=== PATIENT | male | born 1975 | race Caucasian/White ===

== ENCOUNTER → 2019-08-25 | Outpatient (CLI) | payer OTHER ==
--- NOTE | 2019-08-25 12:40 | Diagnostic Imaging Report ---
INDICATION: Lifting injury, back pain. FINDINGS: Lumbar statures are normal and the alignment anatomic. No acute endplate irregularity. No fracture demonstrated. IMPRESSION: Unremarkable radiographic appearance of the anatomically aligned lumbar spine. Dictated by: Dictated on workstation # [id number]
--- NOTE | 2019-08-25 16:42 | Diagnostic Imaging Report ---
INDICATION: Back pain and injury. TIME OF EXAM: 10:11 a.m. FINDINGS: Multiple views of the thoracic spine were obtained. Curvature and alignment are normal. Vertebral body heights are well maintained. No fracture is seen. Pedicles and paraspinous line are intact. Mild lower thoracic spondylosis is noted. IMPRESSION: No acute bony abnormality is detected. Dictated by: Dictated on workstation # [id number]
== END ==
LOC: RAD FS 10:07
PROVIDERS: ATTEND Nurse Practitioner Family
DX: S39.92XA Unspecified injury of lower back, initial encounter (principal); S29.9XXA Unspecified injury of thorax, initial encounter; X50.0XXA Overexertion from strenuous movement or load, initial encounter
CPT/HCPCS: 72072; 72100

== ENCOUNTER → 2019-11-02 | Outpatient (CLI) | payer BC ==
--- NOTE | 2019-11-02 13:46 | Diagnostic Imaging Report ---
INDICATION: Left-sided rib pain. AP and oblique views left ribs are obtained There is no underlying pneumothorax or pleural fluid. The left ribs appear unremarkable with no evidence of fracture or acute bony amount. IMPRESSION: Negative left ribs. Dictated by: Dictated on workstation # [id number]
== END ==
LOC: RAD FS 13:23
PROVIDERS: ATTEND Nurse Practitioner
DX: R07.81 Pleurodynia (principal)
CPT/HCPCS: 71100

== ENCOUNTER 2020-03-20 13:53 | Emergency (ER) | payer BC ==
[~2020-03-20] VITALS: Ht 180 cm; Wt 94.7 kg
--- OUTSIDE RECORDS SUMMARY | 2020-03-20 13:57 | XMS REPORT | Continuity of Care Document ---
Author Organization Unknown Address Unknown Phone Unavailable Allergies There is no data. Medications There is no data. Problems Date Dx Coded Attending Type Code Diagnosis Diagnosed By 11/02/2019 YAIR MELENDEZ [employer] Ot S29.9XXA UNSPECIFIED INJURY OF THORAX, INITIAL EN 11/02/2019 YAIR MELENDEZ [employer] Ot S39.92XA UNSPECIFIED INJURY OF LOWER BACK, INITIA 11/02/2019 YAIR MELENDEZ [employer] Ot X50.0XXA OVEREXERTION FROM STRENUOUS MOVEMENT OR 11/03/2019 ARMIDA AGUILAR [employer] Ot R07.81 PLEURODYNIA 12/03/2019 ARMIDA AGUILAR [employer] Ot R07.81 PLEURODYNIA Procedures There is no data. Results Test Result Range HIV ANTIGEN/ANTIBODY - 01/02/19 11:03 HIV AG/AB, 4TH GEN NON-REACTIVE NON-MARIA L CTIVE SYPHILIS (RPR W/ REFLEX CONFIRMATION) - 01/02/19 11:03 RPR (DX) W/REFL TITER AND CONFIRMATORY TESTING NON-REACTIVE NON-REACTIVE HEP C ANTIBODY - 01/02/19 11:03 HEPATITIS C ANTIBODY NON-REACTIVE NON-R EACTIVE SIGNAL TO CUT-OFF 0.01 <1.00 HSV 1/2 IGG,TYPE SPECIFIC AB HERPESELECT - 01/02/19 11:03 HSV 1 IGG, TYPE SPECIFIC AB <0.90 index NRG HSV 2 IGG, TYPE SPECIFIC AB <0.90 index NRG GC/CHLAMYDIA (SWAB OR URINE)-RAPID - 11:03 CHLAMYDIA TRACHOMATIS RNA, TMA NOT DETECTED NOT DETECTED NEISSERIA GONORRHOEAE RNA, TMA NOT DETECTED NOT DETECTED COMMENT NRG Encounters ACCT No. Visit Date/Time Discharge Status Pt. Type Provider Facility Loc./Unit Complaint [id number] 01/28/2020 08:50:00 01/28/2020 23:59: 59 CLS Outpatient MAHAD WEBSTER [facility] [id number] 01/02/2019 09:00:00 Document Registration [id number] 11/02/2019 13:23:00 020 23:59:59 CLS Outpatient ARMIDA AGUILAR APRN [facility] FS R07.81 [id number] 08/25/2019 10:07:00 019 23:59:59 CLS Outpatient YAIR MELENDEZ APRN [facility] FS M54.6 M54.5
[2020-03-20] MEDS ORDERED: methylPREDNISolone 80 MG/ML (DEPO MEDROL) VIAL IM STA (14:09)
[2020-03-20] MEDS ORDERED: DEXAMETHASONE 10 MG/ML (DECADRON) 1 ML VIAL IM STA (14:09)
[2020-03-20] MEDS ORDERED: hydrOXYzine (VISTARIL/ATARAX) 25 MG capsule/tablet PO STA (14:09)
--- NOTE | 2020-03-20 14:16 | ED Integumentary General ---
General Chief Complaint: Bite-Animal/Human/Insect Stated Complaint: STUNG BY WASP - IS ALLERGIC Nursing Triage Note: Was stung by wasp approx 10 minutes prior to arrival. 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 Was stung 10 years ago and had a "black line" coming up his leg. Denies shortness of breath or difficulty breathing. Sting is on R hand and states hand and r arm are numb. States he is dizzy Source: patient History of Present Illness Date Seen by Provider: Mar 20, 2020 Time Seen by Provider: 13:59 Initial Comments 44-year-old male presenting with complaints of wasp sting to his right hand. He states this happened about 15 minutes prior to arrival. He denies any wheezing or shortness of breath. He states in the past he had a wasp sting and had black lines coming up from it on his leg. When it happened he was told that he was allergic by a doctor but they did not prescribe an EpiPen. He states currently he has some swelling to the right hand and tingling in his fingers. He does feel dizzy and lightheaded. He takes Claritin or loratadine everyday for general allergies. He states that when he takes Benadryl it makes him throw up. Allergies and Home Medications Allergies Coded Allergies: Penicillins (Verified Allergy, Unknown, throat swelling, 03/20/20) diphenhydramine (Verified Allergy, Unknown, vomiting, 03/20/20) Home Medications Hydroxyzine HCl 25 Mg Tablet, 25 MG PO Q4H PRN for swelling/redness Prescribed by: FREDDY OLVERA on 03/20/20 1517 Sulfamethoxazole/Trimethoprim 1 Each Tablet, 1 EACH PO BID Prescribed by: FREDDY OLVERA on 03/20/20 1517 Patient Home Medication List Home Medication List Reviewed: Yes Review of Systems Review of Systems Constitutional: No chills; dizziness (since sting); No fever EENTM: no symptoms reported Respiratory: no symptoms reported Cardiovascular: no symptoms reported Gastrointestinal: no symptoms reported Genitourinary: no symptoms reported Musculoskeletal: no symptoms reported Skin: see HPI Psychiatric/Neurological: Paresthesia (tingling in right hand/fingers from where he was stung), Tingling (right hand/fingers where he was stung) Past Karjcfl-Kvvuvu-Iyswjw Hx Past Med/Social Hx: Reviewed Nursing Past Med/Soc Hx Patient Social History Alcohol Use: Denies Use Recreational Drug Use: No Smoking Status: Current Everyday Smoker Type Used: Cigarettes 2nd Hand Smoke Exposure: Yes Recent Foreign Travel: No Contact w/Someone Who Travel: No Recent Infectious Disease Expo: No Recent Hopitalizations: No Physical Abuse: No Sexual Abuse: No Mistreated: No Fear: No Seasonal Allergies Seasonal Allergies: No Past Medical History Surgeries: Yes Adenoidectomy, Tonsillectomy Respiratory: No Cardiac: Yes Hypertension Neurological: Yes (encephalitis ) Genitourinary: No Gastrointestinal: No Musculoskeletal: No Endocrine: No HEENT: No Cancer: No Psychosocial: No Integumentary: No Physical Exam Vital Signs Vital Signs - First Documented 03/20/20 13:59 Temp 36.0 Pulse 95 Resp 17 B/P (MAP) 138/90 (106) Pulse Ox 96 Capillary Refill : Less Than 3 Seconds General Appearance: WD/WN, no apparent distress HEENT: PERRL/EOMI, pharynx normal Neck: non-tender, full range of motion, supple, normal inspection Cardiovascular: normal peripheral pulses, regular rate, rhythm Respiratory: chest non-tender, lungs clear, normal breath sounds, no respiratory distress, no accessory muscle use Extremities: normal range of motion, non-tender, normal capillary refill, inflammation (mild redness and swelling to right palm at base of 5th metacarpal) Neurologic/Psychiatric: alert, normal mood/affect, oriented x 3 Skin: warm/dry Skin Problem Location: upper extremities (right hand) Skin Problem Character: erythema (mild at base of 5th metacarpal on palm where he states he was stung), swelling (mild) Lymphatic: no adenopathy Progress/Results/Core Measures Results/Orders My Orders Orders - FREDDY OLVERA MD Dexamethasone Injection (Decadron Inject (03/20/20 14:09) Methylprednisolone Acetate Inj (Depo-Med (03/20/20 14:09) Hydroxyzine Cap/Tab (Vistaril) (03/20/20 14:09) Ice: Apply To Affected Area (03/20/20 14:42) Vital Signs/I&O 03/20/20 03/20/20 13:59 15:27 Temp 36.0 Pulse 95 70 Resp 17 16 B/P (MAP) 138/90 (106) 126/81 Pulse Ox 96 95 Blood Pressure Mean: 106 Progress Progress Note #1: Progress Note reassured pt that his exam is not showing signs of severe allergy. treat with steroid and hydroxyzine since he reports being unable to take benadryl. Progress Note #2: Time: 15:06 Progress Note Pt reports improvement in how he feels. will discharge on a few days of a ntibiotics and continued hydroxyzine for a few days then check back with clinic for continued concerns Departure Impression Primary Impression: Accidental wasp sting Disposition: HOME, SELF-CARE Condition: Stable Departure-Patient Inst. Decision time for Depature: 15:14 Referrals: NO,LOCAL PHYSICIAN (PCP) Primary Care Physician [facility] Patient Instructions: Insect Bites and Stings (DC) Add. Discharge Instructions: Elevate your hand above heart level to help with swelling and pain. Ice 15-20 minutes every few hours as needed for pain and swelling. Continue on Hydroxyzine as needed for redness and swelling All discharge instructions reviewed with patient and/or family. Voiced understanding. Scripts Sulfamethoxazole/Trimethoprim (Bactrim Ds Tablet) 1 Each Tablet 1 EACH PO BID for wasp sting for 5 Days, #10 TAB 0 Refills Prov: FREDDY OLVERA MD 03/20/20 Hydroxyzine HCl (Hydroxyzine HCl) 25 Mg Tablet 25 MG PO Q4H PRN for swelling/redness for 5 Days, #30 TAB 0 Refills Prov: FREDDY OLVERA MD 03/20/20 FREDDY OLVERA MD Mar 20, 2020 14:16
[2020-03-20] MEDS ORDERED: SULF1TAB35 PO (15:17)
[2020-03-20] MEDS ORDERED: HYDR-700 PO (15:17)
[2020-03-20 15:27] VITALS: BP 126/81
== END 2020-03-20 15:28 | disposition home or self-care (01) ==
LOC: EDUNIT# 13:53 → ER FS 13:54
DX: T63.461A Toxic effect of venom of wasps, accidental (unintentional), initial encounter (principal); F17.210 Nicotine dependence, cigarettes, uncomplicated; Z88.0 Allergy status to penicillin; Z88.8 Allergy status to other drugs, medicaments and biological substances
CPT/HCPCS: 99284

== ENCOUNTER 2022-07-18 07:21 | Emergency (ER) | payer BC ==
[~2022-07-18] VITALS: Ht 180 cm; Wt 94.0 kg
[~2022-07-18 07:21] MED LIST: HYDR-700 PO; SULF1TAB38 PO
--- NOTE | 2022-07-18 07:26 | ED Chest Pain ---
General Stated Complaint: CHEST PAINS History of Present Illness Date Seen by Provider: Jul 18, 2022 Time Seen by Provider: 07:26 Initial Comments 46-year-old male with PMH of COPD/active smoker (2 to 3 packs/day)/HTN for many years untreated, is here with complaints of left-sided chest pain which has been constant since today morning about an hour prior to presenting to the ER. Chest pain is waxing and waning in intensity but remains on the left lower side of the chest. When patient got to work he started feeling lightheaded and tingling in his left arm. He immediately came to the ER. Denies fever, SOB, abdominal pain, diarrhea, headache, neurological deficits, nausea and vomiting. Patient has a family history of a father who due to cardiac causes at the age of 44, and a brother who had a massive heart attack at the age of 38. Allergies and Home Medications Allergies Coded Allergies: Penicillins (Verified Allergy, Unknown, throat swelling, 03/20/20) diphenhydramine (Verified Allergy, Unknown, vomiting, 03/20/20) Patient Home Medication List Home Medication List Reviewed: Yes Hydroxyzine HCl (Hydroxyzine HCl) 25 Mg Tablet, 25 MG PO Q4H PRN for swellin g/redness Prescribed by: FREDDY OLVERA on 03/20/201516 Sulfamethoxazole/Trimethoprim (Bactrim Ds Tablet) 1 Each Tablet, 1 EACH PO BID Prescribed by: FREDDY OLVERA on 03/20/20 151 Review of Systems Review of Systems Constitutional: no symptoms reported EENTM: No Symptoms Reported Respiratory: No Symptoms Reported Cardiovascular: Chest Pain Gastrointestinal: No Symptoms Reported Genitourinary: No Symptoms Reported Musculoskeletal: no symptoms reported Skin: no symptoms reported Psychiatric/Neurological: No Symptoms Reported Endocrine: No Symptoms Reported Hematologic/Lymphatic: No Symptoms Reported Past Zaaulky-Bpfmeo-Ozkduo Hx Seasonal Allergies Seasonal Allergies: No Past Medical History Surgeries: Yes Adenoidectomy, Tonsillectomy Respiratory: No Cardiac: Yes Hypertension Neurological: Yes (encephalitis ) Genitourinary: No Gastrointestinal: No Musculoskeletal: No Endocrine: No HEENT: No Cancer: No Psychosocial: No Integumentary: No Physical Exam Vital Signs Vital Signs - First Documented 07/18/22 07:37 Pulse 80 Resp 16 B/P (MAP) 155/100 (118) Pulse Ox 97 Capillary Refill : Height, Weight, BMI Height: '" Weight: lbs. oz. kg; 29.00 BMI Method: General Appearance: No Apparent Distress, WD/WN HEENT: PERRL/EOMI Neck: Full Range of Motion, Normal Inspection Respiratory: Chest Non Tender, Lungs Clear, Normal Breath Sounds, No Accessory Muscle Use, No Respiratory Distress Cardiovascular: Regular Rate, Rhythm, No Edema, No Murmur Gastrointestinal: Normal Bowel Sounds, Non Tender, Soft Neurologic/Psychiatric: Alert, Oriented x3, No Motor/Sensory Deficits, Normal Mood/Affect, harp regulator II-XII Norm as Tested Skin: Normal Color Progress/Results/Core Measures Results/Orders Lab Results Laboratory Tests Test 07/18/22 07:25 07/18/22 07:33 07/18/22 08:00 07/18/22 09:09 Range/Units White Blood Count 6.2 4.3-11.0 10^3/uL Red Blood Count 5.16 4.30-5.52 10^6/uL Hemoglobin 15.8 13.3-17.7 g/dL Hematocrit 44 40-54 % Mean Corpuscular Volume 86 80-99 fL Mean Corpuscular Hemoglobin 31 25-34 pg Mean Corpuscular Hemoglobin Concent 36 32-36 g/dL Red Cell Distribution Width 12.0 10.0-14.5 % Platelet Count 204 130-400 10^3/uL Mean Platelet Volume 10.0 9.0-12.2 fL Immature Granulocyte % (Auto) 0 % Neutrophils (%) (Auto) 47 42-75 % Lymphocytes (%) (Auto) 41 12-44 % Monocytes (%) (Auto) 9 0-12 % Eosinophils (%) (Auto) 3 0-10 % Basophils (%) (Auto) 1 0-10 % Neutrophils # (Auto) 2.9 1.8-7.8 10^3/uL Lymphocytes # (Auto) 2.5 1.0-4.0 10^3/uL Monocytes # (Auto) 0.5 0.0-1.0 10^3/uL Eosinophils # (Auto) 0.2 0.0-0.3 10^3/uL Basophils # (Auto) 0.0 0.0-0.1 10^3/uL Immature Granulocyte # (Auto) 0.0 0.0-0.1 10^3/uL Prothrombin Time 12.2 12.2-14.7 SEC INR Comment 0.9 0.8-1.4 Activated Partial Thromboplast Time 31 24-35 SEC D-Dimer 0.15 0.00-0.49 UG/ML Sodium Level 140 135-145 MMOL/L Potassium Level 4.1 3.6-5.0 MMOL/L Chloride Level 107 98-107 MMOL/L Carbon Dioxide Level 21 21-32 MMOL/L Anion Gap 12 5-14 MMOL/L Blood Urea Nitrogen 14 7-18 MG/DL Creatinine 0.89 0.60-1.30 MG/DL Estimat Glomerular Filtration Rate 108 BUN/Creatinine Ratio 16 Glucose Level 113 H 70-105 MG/DL Calcium Level 9.3 8.5-10.1 MG/DL Corrected Calcium 9.0 8.5-10.1 MG/DL Magnesium Level 2.0 1.6-2.4 MG/DL Total Bilirubin 0.5 0.1-1.0 MG/DL Aspartate Amino Transf (AST/SGOT) 18 5-34 U/L Alanine Aminotransferase (ALT/SGPT) 26 0-55 U/L Alkaline Phosphatase 111 40-136 U/L Troponin I < 0.30 <0.30 NG/ML Pro-B-Type Natriuretic Peptide 24.8 <125.0 PG/ML Total Protein 7.1 6.4-8.2 GM/DL Albumin 4.4 3.2-4.5 GM/DL Influenza Type A (RT-PCR) Not Detected Not Detecte Influenza Type B (RT-PCR) Not Detected Not Detecte SARS-CoV-2 RNA (RT-PCR) Not Detected Not Detecte Urine Color YELLOW Urine Clarity CLEAR Urine pH 6.0 5-9 Urine Specific [place] 1.020 1.016-1.022 Urine Protein NEGATIVE NEGATIVE Urine Glucose (UA) NEGATIVE NEGATIVE Urine Ketones NEGATIVE NEGATIVE Urine Nitrite NEGATIVE NEGATIVE Urine Bilirubin NEGATIVE NEGATIVE Urine Urobilinogen 0.2 < = 1.0 MG/DL Urine Leukocyte Esterase NEGATIVE NEGATIVE Urine RBC (Auto) NEGATIVE NEGATIVE Urine RBC NONE /HPF Urine WBC RARE /HPF Urine Squamous Epithelial Cells NONE /HPF Urine Crystals NONE /LPF Urine Bacteria NEGATIVE /HPF Urine Casts NONE /LPF Urine Mucus MODERATE H /LPF Urine Culture Indicated NO Urine Opiates Screen NEGATIVE NEGATIVE Urine Oxycodone Screen NEGATIVE NEGATIVE Urine Methadone Screen NEGATIVE NEGATIVE Urine Propoxyphene Screen NEGATIVE NEGATIVE Urine Barbiturates Screen NEGATIVE NEGATIVE Ur Tricyclic Antidepressants Screen NEGATIVE NEGATIVE Urine Phencyclidine Screen NEGATIVE NEGATIVE Urine Amphetamines Screen NEGATIVE NEGATIVE Urine Methamphetamines Screen NEGATIVE NEGATIVE Urine Benzodiazepines Screen NEGATIVE NEGATIVE Urine Cocaine Screen NEGATIVE NEGATIVE Urine Cannabinoids Screen NEGATIVE NEGATIVE My Orders Orders - JOSE DAVID REYNOLDS MD Cbc With Automated Diff (07/18/22 07:26) Magnesium (07/18/22 07:26) Chest 1 View Ap/Pa Only (07/18/22:26) Ekg Tracing (07/18/22 07:26) Comprehensive Metabolic Panel (07/18/22 07:26) Protime With Inr (07/18/22:) Partial Thromboplastin Time (07/18/22:) Monitor-Rhythm Ecg Trace Only (07/18/22 07:26) Aspirin Chewable Tablet (Baby Aspirin Ch (07/18/22 07:30) Drug Screen Stat (Urine) (07/18/22 07:26) Ua Culture If Indicated (07/18/22 07:26) Covid 19 Inhouse Test (07/18/22 07:26) Influenza A And B By Pcr (07/18/22 07:26) Ed Iv/Invasive Line Start (07/18/22 07:26) Fibrin Degradation Products (07/18/22 07:26) Troponin I Fs (07/18/22 07:26) Probnp Fs (07/18/22 07:26) Troponin I Fs (07/18/22 08:28) Ekg Tracing (07/18/22 08:28) Famotidine Injection (Pepcid Injection) (07/18/22 08:30) Antacid Suspension (Mylanta Suspension (07/18/22 08:30) Ct Head Wo (07/18/22 08:35) Medications Given in ED Current Medications Medications Dose Ordered Sig/Yesi Route Start Time Stop Time Status Last Admin Dose Admin Al Hydrox/Mg Hydrox/Simethicone 30 ml ONCE ONCE PO 07/18/22 08:30 07/18/22 08:40 DC 07/18/22 09:05 30 ML Aspirin 324 mg ONCE ONCE PO 07/18/22 07:30 07/18/22 07:31 DC 07/18/22 07:48 324 MG Famotidine 20 mg ONCE ONCE IVP 07/18/22 08:30 07/18/22 08:40 DC 07/18/22 09:05 20 MG Vital Signs/I&O 07/18/22 07:37 Pulse 80 Resp 16 B/P (MAP) 155/100 (118) Pulse Ox 97 Progress Progress Note : Progress Note 1. ACS RULE OUT: - CXR: normal - CBC/CMP:normal - Troponin/ EKG x2:non-ischemic - UA/ UDS: negative -ASA 324mg STAT - Smoking tapering/cessation advised and also to follow up with PCP to check thyroid panel and lipid panel, and ECHO/ stress testing referral -The patient was seen in the ED, and treated appropriately to presentation at a specific point in time. Patient is informed that there is a possibility that disease and illness can evolve and change in acuity rapidly or slowly after patient is discharged from the ER. Precautionary advice given to the patient for immediate return to ER if symptoms worsen or do not resolve, and to seek emergency care sooner rather than later. Pt also advised on the importance of PCP follow up and compliance with management and follow up plan with PCP and/or specialist, as this is part of the management plan. Pt verbally expressed understanding. 2. DIZZINESS: - CT HEAD: normal - CT head done because pt was insisting on persisting LIGHT-HEADEDNESS that is not affected by movement - Pt did not eat anything today. - Advised adequate hydration Initial ECG Impression Date: Jul 18, 2022 Initial ECG Impression Time: 07:27 Initial ECG Rate: 71 Initial ECG Rhythm: Normal Sinus Initial ECG Intervals: Normal Initial ECG Impression: Normal Initial ECG Comparisson: No Previous ECG Available EKG : EKG Time: 09:12 Rate: 59 Rhythm: Normal Sinus Intervals: Normal ECG Comparisson: Unchanged ECG Impression: Normal Diagnostic Imaging Diagonstic Imaging: Xray, CT Plain Films/CT/US/NM/MRI: chest, head Comments [facility], [place] NAME: JUANITA ILRIANO Dewey [facility] REC#: [id number] PT STATUS: REG ER : 1975 PHYSICIAN: JOSE DAVID REYNOLDS MD ADMIT DATE: 07/18/22/ER FS Draft Date of Exam:07/18/22 CT HEAD WO PROCEDURE: CT head without contrast. TECHNIQUE: Multiple contiguous axial images were obtained through the brain without the use of intravenous contrast. Auto Exposure Controls were utilized during the CT exam to meet ALARA standards for radiation dose reduction. INDICATION: Near syncope. No priors. There is no hemorrhage, hydrocephalus, cerebral edema, mass, mass effect nor evidence for elevated cerebral pressures. The ventricular system nondilated and nondisplaced. The basilar cisterns patent. There is no sulcal effacement. The cortical weldon-white matter differentiations maintained. Orbits, sinuses and calvarium nonacute. IMPRESSION: Normal CT head. Dictated on workstation # [id number] Dict: 07/18/22 0851 Trans: 07/18/22 0854 VÍCTOR [id number] Interpreted by: EUGENIA OVIEDO Electronically signed by: [facility] [place], [place] NAME: JUANITA LIRIANO [facility] REC#: [id number] PT STATUS: REG ER : 1975 PHYSICIAN: JOSE DAVID REYNOLDS MD ADMIT DATE: 07/18/22/ER FS Draft Date of Exam:07/18/22 CHEST 1 VIEW AP/PA ONLY INDICATION: Chest pain. FINDINGS: Portable chest. The lungs are well-aerated and clear. No pneumothorax or pleural effusion. Heart is not enlarged. No bony abnormalities. IMPRESSION: Normal portable chest. Dictated on workstation # [id number] Dict: 07/18/2246 Trans: 07/18/22 0748 [facility] [id number] Interpreted by: ADAN GUERRA MD Electronically signed by: Departure Impression Primary Impression: Ruled out for myocardial infarction Additional Impression: Dizziness, nonspecific Disposition: HOME, SELF-CARE Condition: Stable Departure-Patient Inst. Referrals: NO,LOCAL PHYSICIAN (PCP/Family) Primary Care Physician Patient Instructions: Heart Healthy Diet, SMOKING CESSATION, Smoking: Not Just Harmful to Your Lungs and Heart Add. Discharge Instructions: - Smoking tapering/cessation advised and also to follow up with PCP to check thyroid and lipid panel, and ECHO/ stress testing referral - FOllow up with PCP within the next 3 to 5 days - Return to ER is symptoms worsen or do not improve. Work/School Note: Work Release Form Date Seen in the Emergency Department: Jul 18, 2022 Return to Work: Jul 20, 2022 Restrictions: Need Release from Doctor Other Restrictions Listed Below: Can return to work only after clearance from PCP JOSE DAVID REYNOLDS MD Jul 18, 2022 07:26
[2022-07-18] MEDS ORDERED: ASPIRIN 81 MG CHEW (CHILDREN'S ASA) PO ONE (07:30)
[2022-07-18 07:43] LABS: BASOPHILS % (AUTO) 1 % (0-10); EOSINOPHILS # (AUTO) 0.2 10^3/uL (0.0-0.3); EOSINOPHILS % (AUTO) 3 % (0-10); HEMATOCRIT 44 % (40-54); HEMOGLOBIN 15.8 g/dL (13.3-17.7); LYMPHOCYTES # (AUTO) 2.5 10^3/uL (1.0-4.0); LYMPHOCYTES % (AUTO) 41 % (12-44); MEAN CORPUSCULAR HEMOGLOBIN 31 pg (25-34); MEAN CORPUSCULAR HGB CONC 36 g/dL (32-36); MEAN CORPUSCULAR VOLUME 86 fL (80-99); MONOCYTES # (AUTO) 0.5 10^3/uL (0.0-1.0); MONOCYTES % (AUTO) 9 % (0-12); NEUTROPHILS # (AUTO) 2.9 10^3/uL (1.8-7.8); NEUTROPHILS % (AUTO) 47 % (42-75); PLATELET COUNT 204 10^3/uL (130-400); WHITE BLOOD COUNT 6.2 10^3/uL (4.3-11.0)
--- NOTE | 2022-07-18 07:48 | Diagnostic Imaging Report ---
INDICATION: Chest pain. FINDINGS: Portable chest. The lungs are well-aerated and clear. No pneumothorax or pleural effusion. Heart is not enlarged. No bony abnormalities. IMPRESSION: Normal portable chest. Dictated by: Dictated on workstation # [id number]
[2022-07-18 08:08] LABS: BILIRUBIN,URINE NEGATIVE (NEGATIVE); CLARITY,URINE CLEAR; COLOR,URINE YELLOW; GLUCOSE, URINE (UA) NEGATIVE (NEGATIVE); KETONES,URINE NEGATIVE (NEGATIVE); LEUKOCYTE ESTERASE ,URINE NEGATIVE (NEGATIVE); NITRITE,URINE NEGATIVE (NEGATIVE); PROTEIN,URINE NEGATIVE (NEGATIVE)
[2022-07-18 08:13] LABS: BACTERIA,URINE NEGATIVE /HPF; WBC,URINE RARE /HPF
[2022-07-18 08:14] LABS: ALBUMIN 4.4 GM/DL (3.2-4.5); BILIRUBIN,TOTAL 0.5 MG/DL (0.1-1.0); CALCIUM 9.3 MG/DL (8.5-10.1); CREATININE SERUM 0.89 MG/DL (0.60-1.30); POTASSIUM 4.1 MMOL/L (3.6-5.0); TOTAL PROTEIN 7.1 GM/DL (6.4-8.2)
[2022-07-18 08:18] LABS: INR 0.9 (0.8-1.4); PROTHROMBIN TIME PATIENT 12.2 SEC (12.2-14.7)
[2022-07-18 08:21] LABS: AMPHETAMINE SCREEN, URINE NEGATIVE (NEGATIVE); BARBITURATE SCREEN URINE NEGATIVE (NEGATIVE); BENZODIAZEPINES SCREEN URINE NEGATIVE (NEGATIVE); CANNABINOID SCREEN, URINE NEGATIVE (NEGATIVE); COCAINE SCREEN URINE NEGATIVE (NEGATIVE); METHADONE STAT NEGATIVE (NEGATIVE); OPIATE SCREEN URINE NEGATIVE (NEGATIVE); OXYCODONE STAT NEGATIVE (NEGATIVE); PROPOXYPHENE STAT NEGATIVE (NEGATIVE); TRICYCLIC ANTIDEPRESSANTS SCRE NEGATIVE (NEGATIVE)
[2022-07-18] MEDS ORDERED: FAMOTIDINE 20MG/2ML IV (PEPCID) IVP ONE (08:30)
[2022-07-18] MEDS ORDERED: ANTACID SUSP 30 ML UDC (MYLANTA) PO ONE (08:30)
--- NOTE | 2022-07-18 08:54 | Diagnostic Imaging Report ---
PROCEDURE: CT head without contrast. TECHNIQUE: Multiple contiguous axial images were obtained through the brain without the use of intravenous contrast. Auto Exposure Controls were utilized during the CT exam to meet ALARA standards for radiation dose reduction. INDICATION: Near syncope. No priors. There is no hemorrhage, hydrocephalus, cerebral edema, mass, mass effect nor evidence for elevated cerebral pressures. The ventricular system nondilated and nondisplaced. The basilar cisterns patent. There is no sulcal effacement. The cortical weldon-white matter differentiations maintained. Orbits, sinuses and calvarium nonacute. IMPRESSION: Normal CT head. Dictated by: Dictated on workstation # [id number]
[2022-07-18 10:01] VITALS: BP 151/95
== END 2022-07-18 10:01 | disposition home or self-care (01) ==
LOC: EDUNIT# 07:21 → ER FS 07:23
DX: R42 Dizziness and giddiness (principal); R07.89 Other chest pain; F17.210 Nicotine dependence, cigarettes, uncomplicated; Z87.09 Personal history of other diseases of the respiratory system; Z86.79 Personal history of other diseases of the circulatory system; Z20.822 Contact with and (suspected) exposure to COVID-19
CPT/HCPCS: 36415; 70450; 71045; 80053; 80306; 81000; 83735; 83880; 84484; 85025; 85379; 85610; 85730; 87636; 93005; 93041